=== PATIENT | male | born 1975 | race Caucasian/White ===

== ENCOUNTER 2021-07-05 10:59 | Emergency (ER) | payer MEDICAID ==
[~2021-07-05] VITALS: Ht 175.3 cm; Wt 118.2 kg
[2021-07-05 11:16] VITALS: BP 129/81
[2021-07-05 12:15] LABS: CLARITY,URINE CLEAR (Clear); GLUCOSE, URINE >=1000 mg/dl (Neg); KETONES,URINE TRACE mg/dl (Neg); LEUKOCYTE ESTERASE ,URINE NEGATIVE (Neg); NITRITES, URINE NEGATIVE (Neg); OCCULT BLOOD,URINE TRACE-INTACT (Neg); PH,URINE 5.5 (4.8-8.0); PROTEIN,URINE 100 mg/dl (Neg); UROBILINOGEN,URINE 0.2 E.U/dL (0.2-1.0)
[2021-07-05 12:16] LABS: COLOR,URINE STRAW (Yellow); UA COLLECTION TYPE CLN CATCH MIDSTREAM
[2021-07-05 12:21] LABS: BACTERIA,URINE NONE SEEN /HPF (Neg); FINE GRANULAR CAST 0-3 /LPF (NEGATIVE); MUCUS STRANDS NONE SEEN /LPF (Neg); RBC,URINE 0-2 /HPF (0-2); SQUAMOUS EPITHELIAL CELL,UR NONE SEEN /LPF (FEW); WBC,URINE 0-4 /HPF (0-4)
== END 2021-07-05 12:29 | disposition left against medical advice (07) ==
LOC: ER 11:00
DX: R53.1 Weakness (principal); Z20.822 Contact with and (suspected) exposure to COVID-19; Z53.21 Procedure and treatment not carried out due to patient leaving prior to being seen by health care provider
CPT/HCPCS: 81001; 93005; 99284

== ENCOUNTER 2021-07-14 07:18 | Emergency (ER) | payer MEDICAID ==
[~2021-07-14] VITALS: Ht 175.3 cm; Wt 114.9 kg
[2021-07-14 08:11] LABS: CLARITY,URINE CLEAR (Clear); COLOR,URINE YELLOW (Yellow); GLUCOSE, URINE >=1000 mg/dl (Neg); KETONES,URINE 15 mg/dl (Neg); LEUKOCYTE ESTERASE ,URINE NEGATIVE (Neg); NITRITES, URINE NEGATIVE (Neg); OCCULT BLOOD,URINE SMALL (Neg); PROTEIN,URINE 100 mg/dl (Neg); UROBILINOGEN,URINE 0.2 E.U/dL (0.2-1.0)
[2021-07-14 08:17] LABS: UA COLLECTION TYPE NON-SPECIFIED
[2021-07-14 08:29] LABS: BASOPHILS # (AUTO) 0.1 X10'3 (0-0.2); BASOPHILS % (AUTO) 0.7 % (0-1); EOSINOPHILS # (AUTO) 0.1 X10'3 (0-0.9); EOSINOPHILS % (AUTO) 1.2 % (0-6); HEMATOCRIT 42.1 % (42.0-52.0); HEMOGLOBIN 14.3 g/dl (14.0-17.9); LYMPHOCYTES # (AUTO) 2.9 X10'3 (1.1-4.8); LYMPHOCYTES % (AUTO) 32.2 % (21-51); MEAN CORPUSCULAR HEMOGLOBIN 29.6 PG (27.0-31.0); MEAN CORPUSCULAR HGB CONC 33.9 g/dL (33.0-36.5); MEAN CORPUSCULAR VOLUME 87.5 FL (78-98); MEAN PLATELET VOLUME 8.4 FL (7.4-10.4); MONOCYTES # (AUTO) 0.9 X10'3 (0-0.9); NEUTROPHILS % (AUTO) 55.9 % (42-75); PLATELET COUNT 351 X10'3 (140-440); RED BLOOD COUNT 4.82 X10'6 (4.70-6.10); RED CELL DISTRIBUTION WIDTH 14.8 % (11.5-14.5); WHITE BLOOD COUNT 8.9 X10'3 (4.5-11.0)
[2021-07-14] MEDS ORDERED: OXYC-145 PO (08:38)
[2021-07-14] MEDS ORDERED: ketorolac trometh. 30mg/ml inj. IV ONE (08:40)
[2021-07-14] MEDS ORDERED: normal saline 1000ML IV soln IVB ONE (08:40)
[2021-07-14 08:42] LABS: ALANINE AMINOTRANSFERASE 55 U/L (12-78); ALKALINE PHOSPHATASE 117 IU/L (46-116); ANION GAP 12 (8-16); ASPARTATE AMINO TRANSFERASE 30 U/L (10-37); BILIRUBIN,TOTAL 0.5 MG/DL (0.1-1.0); BLOOD UREA NITROGEN 18 MG/DL (7-18); CALCIUM 9.3 MG/DL (8.5-10.1); CHLORIDE 98 MMOL/L (99-107); GLUCOSE 299 MG/DL (70-104); POTASSIUM 3.8 MMOL/L (3.5-5.1); SODIUM 134 MMOL/L (135-145); TOTAL CARBON DIOXIDE 24.4 MMOL/L (24-32); eGFR > 90 ML/MIN
[2021-07-14 08:56] LABS: BACTERIA,URINE FEW /HPF (Neg); MUCUS STRANDS NONE SEEN /LPF (Neg); RBC,URINE 0-2 /HPF (0-2); SQUAMOUS EPITHELIAL CELL,UR FEW /LPF (FEW); WBC CLUMPS,URINE FEW /HPF (NEGATIVE)
[2021-07-14] MEDS ORDERED: CefTRIAXone 2gm/D5W 50ml BAG 50 ML IV ONE (09:15)
[2021-07-14] MEDS ORDERED: oxyCODONE/APAP 10/325mg tablet PO ONE (10:00)
[2021-07-14] MEDS ORDERED: LIDO700A32 TOP (10:07)
[2021-07-14] MEDS ORDERED: INSU100I31 SUBCUT (10:07)
[2021-07-14 10:38] VITALS: BP 174/119
== END 2021-07-14 10:40 | disposition home or self-care (01) ==
LOC: ER 07:19
DX: E11.9 Type 2 diabetes mellitus without complications (principal); G89.29 Other chronic pain; E86.0 Dehydration; R63.5 Abnormal weight gain; R35.89 Other polyuria; M25.561 Pain in right knee; Z98.890 Other specified postprocedural states
CPT/HCPCS: 36415; 80053; 81001; 82948; 85025; 96361; 96365; 96375; 99285; J0696; J1885; J7030

== ENCOUNTER 2021-12-11 20:34 | Emergency (ER) | payer MEDICAID ==
[~2021-12-11] VITALS: Ht 175.3 cm; Wt 109.0 kg
[~2021-12-11 20:34] MED LIST: INSU100I31 SUBCUT; LIDO700A32 TOP
[2021-12-11 20:39] VITALS: BP 167/110
--- NOTE | 2021-12-11 20:54 | NUR ---
DR SOLIS AWARE OF PT'S SYMPTOMS INCLUDING VISION PROBLEMS THAT STARTED A WEEK AGO. GAVE VERBAL ORDER FOR BASIC BLOODWORK INCLUDING A1C AND SHOULDER X-RAY.
== END 2021-12-12 00:33 | disposition left against medical advice (07) ==
LOC: ER 20:35
DX: Z00.00 Encounter for general adult medical examination without abnormal findings (principal); Z53.21 Procedure and treatment not carried out due to patient leaving prior to being seen by health care provider

== ENCOUNTER 2022-01-03 16:55 | Emergency (ER) | payer MEDICAID | END 2022-01-03 17:35 | disposition left against medical advice (07) | LOC: ER 16:56 | DX: Z00.8 Encounter for other general examination (principal); Z53.21 Procedure and treatment not carried out due to patient leaving prior to being seen by health care provider ==

== ENCOUNTER → 2022-03-18 | Emergency (ER) | payer MEDICAID ==
[~2022-03-18] VITALS: Ht 175.3 cm; Wt 113.6 kg
[2022-03-18 08:44] VITALS: BP 199/122
== END | disposition left against medical advice (07) ==
LOC: ER 08:39
DX: S90.922A Unspecified superficial injury of left foot, initial encounter (principal); M79.672 Pain in left foot; E11.9 Type 2 diabetes mellitus without complications; G89.29 Other chronic pain; Z79.4 Long term (current) use of insulin; Z79.899 Other long term (current) drug therapy; X58.XXXA Exposure to other specified factors, initial encounter; Y93.89 Activity, other specified; Y92.89 Other specified places as the place of occurrence of the external cause; Y99.8 Other external cause status
CPT/HCPCS: 73630; 99283; A6446